=== PATIENT | female | born 1995 | race African-American/Black ===

== ENCOUNTER 2017-07-14 20:39 | Emergency (ER) | payer SELFPAY ==
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
== END 2017-07-14 21:00 | disposition home or self-care (01) ==
LOC: MW.ED 20:39
DX: O9A.312 Physical abuse complicating pregnancy, second trimester (principal); S00.81XA Abrasion of other part of head, initial encounter; Z79.899 Other long term (current) drug therapy; Z3A.19 19 weeks gestation of pregnancy
CPT/HCPCS: 99283

== ENCOUNTER 2017-07-16 16:50 | Emergency (ER) | payer SELFPAY ==
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
== END 2017-07-16 18:10 | disposition home or self-care (01) ==
LOC: MW.ED 16:50
DX: O99.89 Other specified diseases and conditions complicating pregnancy, childbirth and the puerperium (principal); Z02.89 Encounter for other administrative examinations; O99.332 Smoking (tobacco) complicating pregnancy, second trimester; F17.210 Nicotine dependence, cigarettes, uncomplicated; Z3A.19 19 weeks gestation of pregnancy
CPT/HCPCS: 81001; 87086; 99284